=== PATIENT | female | born 1965 | race Caucasian/White ===

== ENCOUNTER 2016-12-10 11:47 | Emergency (ER) | payer OTHER ==
[~2016-12-10] VITALS: Ht 165.1 cm; Wt 59.9 kg
--- NOTE | 2016-12-10 13:35 | ED GENERAL ADULT ---
History of Present Illness General Chief Complaint: Dizziness Stated Complaint: DIZZY, X 4 DAYS Source: patient Exam Limitations: no limitations Vital Signs & Intake/Output Vital Signs & Intake/Output Vital Signs Date Time Temp Pulse Resp B/P B/P Pulse O2 O2 Flow FiO2 Mean Ox Delivery Rate 12/10 1348 98.1 70 20 126/62 100 Room Air 12/10 1203 97.8 81 18 148/77 97 Room Air Room Air ED Intake and Output 12/11 0000 12/10 1200 Intake Total Output Total Balance Patient 132 lb Weight Weight Reported by Patient Measurement Method Allergies Coded Allergies: No Known Allergies (02/06/16) Reconcile Medications Lorazepam (Ativan) 1 MG TABLET 0.5 TAB PO BID PRN ANXIETY Triage Note: TRIAGE: 51 Y/O FEMALE PRESENTS C/O 11/13 LEFT SIDED HEADACHE AND DIZZINESS X 4 DAYS. " THOUGHT IT WAS MY THYROID, I DON'T KNOW." REMAINS SEATED IN WHEELCHAIR TO PROMOTE SAFETY. Triage Nurses Notes Reviewed? yes Onset: 4 days ago Duration: daily in the morning HPI: 51-year female with a history of ocular migraines presenting with headaches, lightheadedness, shortness of breath, chest tightening, and bilateral hand paresthesias upon awakening for the past 4 mornings. States that she feels like she is hyperventilating during these episodes, but she tries to focus and control her breathing. Episodes last about an hour after waking up and then self resolve, do not usually recur throughout the day. Has not tried anything for symptomatic relief. No identifiable life stressors. No head trauma, visual changes, nausea, vomiting, confusion. Currently asymptomatic. (KATELYNN ROSENTHAL,SHAWN) Past History Travel History Traveled to [place] past 21 day No Medical History Any Pertinent Medical History? see below for history Neurological: NONE EENT: NONE Cardiovascular: NONE Respiratory: NONE Gastrointestinal: NONE Hepatic: NONE Renal: NONE Musculoskeletal: NONE Psychiatric: NONE Endocrine: NONE Blood Disorders: NONE Cancer(s): NONE EVENT HOST/Reproductive: NONE Surgical History Surgical History: non-contributory Psychosocial History What is your primary language Tajik Tobacco Use: Never used ETOH Use: occasional use Illicit Drug Use: denies illicit drug use Family History Family History, If Any: Relation not specified for: *No pertinent family history Hx Contributory? No (KATELYNN ROSENTHAL,SHAWN) Review of Systems Review of Systems Constitutional: Reports: no symptoms. EENTM: Denies: blurred vision, double vision, visual changes. Respiratory: Reports: no symptoms. Cardiovascular: Reports: no symptoms. Neurological/Psychological: Reports: headache, paresthesia. Denies: confusion, other (light headedness). (SHAWN PACE PA-C) Physical Exam Physical Exam General Appearance: well developed/nourished, no apparent distress Head: atraumatic Eyes: Bilateral: normal appearance, PERRL, EOMI, other (no nystagmus bilaterally). Respiratory: normal breath sounds, lungs clear Cardiovascular: regular rate/rhythm Neurologic/Psych: no motor/sensory deficits, alert, oriented x 3, normal gait, branch rental manager II-XII nml as tested Core Measures ACS in differential dx? No CVA/TIA Diagnosis: No Severe Sepsis Present: No Septic Shock Present: No (SHAWN PACE PA-C) Progress Differential Diagnoses I considered the following diagnoses in my evaluation of the patient: [Anxiety attack versus panic attack versus atypical migraine.] Plan of Care: Orders Procedure Date/time Status FingerStick- Glucose 12/10 1311 Active EKG 12/10 1206 Active History is most consistent with anxiety versus panic attack. Given small trial of Ativan prescription to take when episodes occur. Instructed to follow up with primary care provider for anxiety evaluation. (SHAWN PACE PA-C) Initial ED EKG: none (SHAWN PACE PA-C) Departure Departure Disposition: HOME OR SELF CARE Condition: Stable Clinical Impression Primary Impression: Light headedness Secondary Impressions: Hand paresthesia, Headache, Shortness of breath Referrals: PATIENT HAS NO PRIMARY CARE DR (PCP/Family) Additional Instructions: Use ativan when your episodes occur. Follow-up with your primary care provider for reevaluation. Return to the ED for any new or worsening symptoms. Do not use Ativan before driving as it can make you drowsy. Departure Forms: Customer Survey General Discharge Information Prescriptions: Current Visit Scripts Lorazepam (Ativan) 0.5 TAB PO BID PRN ANXIETY #4 TAB (SHAWN PACE PA-C) PA/[employer] Co-Sign Statement Statement: ED Attending supervision documentation- I saw and evaluated the patient. I have also reviewed all the pertinent lab results and diagnostic results. I agree with the findings and the plan of care as documented in the PA's/[employer]'s documentation. x I have reviewed the ED Record and agree with the PA's/[employer]'s documentation. [] Additions or exceptions (if any) to the PAs/[employer]'s note and plan are summarized below: [] (VONDA FAUSTIN,SHERIE) Critical Care Note Critical Care Note Critical Care Time: non-applicable (KATELYNN ROSENTHAL,SHAWN)
[2016-12-10 13:48] VITALS: BP 126/62
[2016-12-10] MEDS ORDERED: ATIVAN1 M1 PO (13:53)
== END 2016-12-10 13:56 ==
LOC: ERH 11:47
DX: R42 Dizziness and giddiness (principal); R20.3 Hyperesthesia; R51 Headache; R06.02 Shortness of breath
CPT/HCPCS: 93005; 93010